=== PATIENT | female | born 2000 | race Caucasian/White ===

== ENCOUNTER 2019-06-21 08:28 | Day surgery (SDC) | payer BC ==
[~2019-06-21 08:28] MED LIST: LIDOCAINE MPF 2%-EPI 1:200000 20 ML VIAL ONE; METHYLERGONOVINE 0.2 MG/ML AMP ONE
[2019-06-21 08:49] LABS: HCG UR QUAL NEGATIVE
[2019-06-21] MEDS ORDERED: LACTATED RINGERS 1,000 ML IV ONE (09:01)
--- NOTE | 2019-06-21 09:40 | ANESTHESIA ---
Pre-Anesthesia VS, & Labs - Diagnosis Imperforate hymen - Procedure hymenectomy Vital Signs: Temp Pulse Resp BP Pulse Ox 36.7 C 69 16 116/81 H 97 06/21/19 08:42 06/21/19 08:42 06/21/19 08:42 06/21/19 08:42 06/21/19 08:42 Height 5 ft 2 in Weight (kg) 65.8 kg - NPO >8 hours - Is Patient ?: No Home Medications and Allergies Allergies/Adverse Reactions: Allergies Allergy/AdvReac Type Severity Reaction Status Date / Time No Known Drug Allergies Allergy Verified 12/11/14 13:39 Anes History & Medical History - Anesthetic History Anesthesia Complications: reports: No previous complications - Medical History Cardiovascular: reports: None Pulmonary: reports: None Gastrointestinal: reports: None Urinary: reports: None Musculoskeletal: reports: None Endocrine/Autoimmune: reports: None Skin: reports: None Smoking Status: Never smoker - Surgical History General: Appendectomy Exam General: Alert Dental: WNL Mouth Opening: Greater than 4 Fingerbreadths Mallampati classification: I Thyromental Distance: greater than 6 cm Respiratory: Lungs clear Cardiovascular: Regular rate, Normal S1, Normal S2 Mental/Cognitive Status: Alert/Oriented X3 Plan Anesthesia Type: General Consent for Procedure(s) Verified and Reviewed: Yes Code Status: Attempt Resuscitation ASA classification: 1-Healthy patient Is this case an emergency?: No
--- NOTE | 2019-06-21 10:01 | SURGERY HX AND PHYSICAL(T) ---
Surgical History & Physical - Chief Complaint/HPI History of Present Illness: CC: Preop Hymenectomy HPI: patient is here to see Dr Morales for PreOp for hymenectomy. ...................................................................Denice Kumar LPN June 19, 2019 9:25 AM Ms Camacho is a 18 yo G0 here for preop assessment for hymectomy. She was last seen in clinic on April 28, 2019 with compliant of difficulty inserting tampons. 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 She is not sexually active and has never had any tupe of penetrative activity. No prior coitarche. Menarche at age 8. Monthly menses. No changes in health hx since time of prior exam. Current Allergies: No Known Allergies Current Meds: * PHARMA KIMBERLY CHEWABLES Chew 2 daily for anxiety ZOLOFT 100 MG ORAL TABLET (SERTRALINE HCL) Take one tablet by mouth daily Family History Summary: Family History Reviewed: 06/19/2019 Family History of a Hx of Hypertension for Daughter - Entered On: 05/15/2014 Risk Factors: Smoked Tobacco Use: Never smoker Smokeless Tobacco Use: Never Passive Smoke Exposure: no Caffeine Use: 0 drinks per day Exercise: no Seatbelt Use: 100 % Sun Exposure: occasionally Alcohol Use: no Drug Use: no Vital Signs: Patient Profile: 18 Years Old Female Height: 62.75 inches Weight: 145.2 pounds BMI: 26.02 Pt. in pain? no Vitals Entered By: Denice Kumar LPN (June 19, 2019 8:56 AM) Meds Reviewed: Done Allergies Reviewed: Done Past Medical History: none Past Surgical History: appendectomy 01/17 [employer] Review of Systems ROS Comments: As per HPI, otherwise remaining systems are negative. Physical Constitutional: alert, no acute distress. Skin: normal turgor, normal color. Head: atraumatic, normocephalic. Cardiovascular: RRR. Respiratory: no respiratory distress, clear to auscultation. Abdomen: nondistended, nontender. Spine: no deformities. Extremities: no deformities. Neurologic: normal. Psych: affect and mood appropriate, normal interaction. 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 Aftercare reviewed Orders: PRE OP -[id number] ([id number]) - PMH/PSH/Social Hx Does the pt have a hx of MRSA?: No Eyes, Ears, Nose, Throat: Chronic vision loss Cardiovascular: None Respiratory: None Skin: None Endocrine/Autoimmune: None Gastrointestinal: None Urinary: None Musculoskeletal: None Psychiatric: Depression, Anxiety General: Appendectomy Smoking Status: Never smoker Does the pt drink ETOH?: No Does the pt have substance abuse?: No - Home Meds and Allergies Allergies/Adverse Reactions: Allergies Allergy/AdvReac Type Severity Reaction Status Date / Time No Known Drug Allergies Allergy Verified 12/11/14 13:39 - Vital Signs Heart Rate: 69 Blood Pressure: 116/81 Temperature: 98.1 F Respiratory Rate: 16 O2 Saturation: 97 Weight (kg): 65.8 kg Height: 5 ft 2 in - Patient Review Patient Review: Problems were reviewed with the patient during this visit. Medications were reviewed with the patient during this visit. Allergies were reviewed this patient during this visit. Pertinent Tests Reviewed: All pertitent test for this patient were reviewed.
[2019-06-21] MEDS ORDERED: SCOPOLAMINE PATCH TOP ONE (10:23)
[2019-06-21] MEDS ORDERED: SILVER NITRATE APPLICATOR TOP ONE (11:03)
--- NOTE | 2019-06-21 11:27 | OPERATIVE REPORT ---
Operative Report - General Planned Procedure: Hymenectomy Pre-Op Diagnosis: Imperforate hymen Procedure Performed: Hymenectomy Post Op Diagnosis: Same - Procedure Note Primary Surgeon: Ginna Morales MD Secondary Surgeon: none Anesthesia Provider: Althea Das CRNA Anesthesia Technique: General ET tube Pathology: Specimen for routine discard. No specimen for pathology review. IV Fluids (mL): 800 Estimated Blood Loss (mL): 10 Urine Output (mL): 0 (voided prior to procedure) Indications: Imperforate hymen impeding ability to use tampons/menstrual cups to control menses. Problematic in work environment and athletics. Findings: Imperforate hymen. Otherwise normal appearing external female genitalia. Complications: none - Other Other Information/Narrative: Ms Camacho is a 18 yo G0 who presents for surgical management of an imperforate hymen. Risks, benefits, alternatives were reviewed. Written consent had been obtained and was again confirmed. She was taken to the OR and underwent general anesthesia. She was placed in dorsal lithotomy position with legs supported in yellow fin stirrups. She was prepped and draped in the usual sterile fashion. A surgical time out was performed. The hymen was injected with 2% lidocaine with epinephrine to a total of 10 cc. The edge of the hymenal ring was grasped with berry picker and elevated. A scalpel was used to sharply dissect the hymenal tissue from the vaginal sidewall from 2:00 to 10:00. The raw edge was whip stitched using 4-0 Monocryl in a run jayson, locked fashion. Silver nitrate was used to obtain additional hemostasis. An additional 10 cc of 2% lidocaine with epinephrine was injected under the suture line. Good hemostasis was noted. Procedure was well tolerated and without complication. She was brought to the PACU for recovery from anesthesia. Specimen was sent for routine discard.
[2019-06-21 12:16] VITALS: BP 104/76
== END 2019-06-21 08:29 | disposition home or self-care (01) ==
LOC: SDS 08:28
PROVIDERS: ATTEND Obstetrics & Gynecology
PROC: 0UB Female Reproductive System, Excision (ICD-10-PCS; principal; 2019-06-21 10:00)
DX: Q52.3 Imperforate hymen (principal)
CPT/HCPCS: 56700; 81025; J3490; J7120